=== PATIENT | female | born 1970 | race Caucasian/White ===

== ENCOUNTER 2017-03-15 14:21 | Emergency (ER) | payer SELFPAY ==
[2017-03-15] MEDS ORDERED: methylPREDNISolone Sod Succ/PF 125 MG/2 ML VIAL ONE (15:22)
[2017-03-15] MEDS ORDERED: Ketorolac Tromethamine 30 MG/ML VIAL ONE (15:22)
[2017-03-15] MEDS ORDERED: Water For Inject, Bacteriostat 30 ML ONE (15:23)
== END 2017-03-15 15:50 | disposition home or self-care (01) ==
LOC: ERS 14:21
DX: M54.5 Low back pain (principal); I10 Essential (primary) hypertension; E55.9 Vitamin D deficiency, unspecified; M19.90 Unspecified osteoarthritis, unspecified site; F41.9 Anxiety disorder, unspecified; F17.210 Nicotine dependence, cigarettes, uncomplicated
CPT/HCPCS: 96372; J1885; J2930